=== PATIENT | female | born 1985 | race Caucasian/White ===

== ENCOUNTER 2017-12-14 06:52 | Day surgery (SDC) | payer BC ==
[~2017-12-14 06:52] MED LIST: Lactated Ringers 1,000 ML IV SCH; Lidocaine 1%/Sod Bicarbonate in NS 8.4% 1 ML Syringe IDERM PRN; Sodium Chloride 0.9% 10 ML Syringe FLUSH PRN
[2017-12-14] MEDS ORDERED: Propofol 200 MG/20 ML SDV ONE ×7 (07:20→09:25)
[2017-12-14] MEDS ORDERED: Midazolam 1 MG/ML 2 ML SDV ONE (07:21)
[2017-12-14] MEDS ORDERED: fentaNYL 100 MCG/2 ML SDV ONE ×2 (07:21→09:15)
--- NOTE | 2017-12-14 07:39 | PCM.PREANE ---
Preanesthetic Assessment - Anesthesia/Transfusion/Family Hx Anesthesia History: Prior Anesthesia Without Reaction Transfusion History: No Prior Transfusion(s) - Review of Systems General: No Symptoms Pulmonary: No Symptoms Cardiovascular: No Symptoms Gastrointestinal: No Symptoms Neurological: No Symptoms - Physical Assessment NPO Status Date: 12/13/17 NPO Status Time: 21:00 ASA Class: 2 Mental Status: Alert & Oriented x3 Airway Class: Mallampati = 1 Dentition: Reports: Normal Dentition ROM/Head Extension: Full Lungs: Clear to Auscultation Cardiovascular: Regular Rate - Lab Values: Laboratory Last Values Urine HCG, Qual Negative (NEGATIVE) 12/14/17 07:10 - Allergies Allergies/Adverse Reactions: Allergies Allergy/AdvReac Type Severity Reaction Status Date / Time No Known Allergies Allergy Verified 12/13/17 13:49 - Acknowledgements Anesthesia Type Planned: General Anesthesia, MAC Pt an Appropriate Candidate for the Planned Anesthesia: Yes Alternatives and Risks of Anesthesia Discussed w Pt/Guardian: Yes Pt/Guardian Understands and Agrees with Anesthesia Plan: Yes PreAnesthesia Questionnaire HEENT History: Reports: Impaired Vision, Other (See Below) Other HEENT History: strep throat, pharyngitis, wears glasses Respiratory History: Reports: Other (See Below) Other Respiratory History: pneumonia ANESTHESIA RESIDENT History: Reports: Endocrine/Metabolic History: Reports: Obesity/BMI 30+ - Past Surgical History Musculoskeletal Surgical History: Reports: Carpal Tunnel (bilateral) Dermatological Surgical History: Reports: None - SUBSTANCE USE Smoking Status *Q: Never Smoker Recreational Drug Use History: No - HOME MEDS Home Medications: Home Meds . [No Known Home Meds] 12/13/17 [History] - CURRENT (IN HOUSE) MEDS Current Meds: Current Medications Lactated Ringer's (Ringers, Lactated) 1,000 mls @ 125 mls/hr IV ASDIRECTED ROMAINE Stop: 12/14/17 23:00 Lidocaine/Sodium Bicarbonate (Buffered Lidocaine 1% In Ns 8.4%) 0.25 ml IDERM ONETIME PRN PRN Reason: Prior to IV Start Stop: 12/14/17 18:00 Sodium Chloride (Saline Flush) 10 ml FLUSH ASDIRECTED PRN PRN Reason: Keep Vein Open Stop: 12/14/17 18:00 Discontinued Medications Bupivacaine HCl (Marcaine 0.5%) Confirm Administered Dose 30 ml .ROUTE .STK-MED ONE Stop: 12/14/17 07:05 Fentanyl (Sublimaze) Confirm Administered Dose 200 mcg .ROUTE .STK-MED ONE Stop: 12/14/17 07:22 Lidocaine HCl (Xylocaine-Mpf 1%) Confirm Administered Dose 5 mls @ as directed .ROUTE .STK-MED ONE Stop: 12/14/17 07:21 Lidocaine HCl (Xylocaine-Mpf 1%) Confirm Administered Dose 30 ml .ROUTE .STK- MED ONE Stop: 12/14/17 07:05 Midazolam HCl (Versed 1 Mg/Ml) Confirm Administered Dose 2 mg .ROUTE .STK-MED ONE Stop: 12/14/17 07:22 Propofol (Diprivan 20 Ml) Confirm Administered Dose 200 mg .ROUTE .STK-MED ONE Stop: 12/14/17 07:21
[2017-12-14] MEDS: Bupivacaine 0.5% 30 ML SDV ONE ×2 (08:20→09:00)
[2017-12-14] MEDS: Lidocaine 1% 30 ML SDV ONE ×2 (08:20→09:00)
[2017-12-14] MEDS ORDERED: Lactated Ringers 1,000 ML ONE (08:35)
[2017-12-14] MEDS ORDERED: Bupivacaine 0.5% 10 ML SDV ONE (08:46)
[2017-12-14] MEDS ORDERED: Ondansetron 4 MG/2 ML SDV ONE (09:16)
--- NOTE | 2017-12-14 09:54 | PCM48HPAN ---
Post Anesthesia Note - EVALUATION WITHIN 48HRS OF ANESTHETIC Vital Signs in Normal Range: Yes Patient Participated in Evaluation: Yes Respiratory Function Stable: Yes Airway Patent: Yes Cardiovascular Function Stable: Yes Hydration Status Stable: Yes Pain Control Satisfactory: Yes Nausea and Vomiting Control Satisfactory: Yes Mental Status Recovered: Yes Pulse Rate: 119 SaO2: 97 Resp Rate: 16 Temperature: 97.8 F Blood Pressure: 118/88
--- NOTE | 2017-12-14 10:03 | PCM.OPNOTE ---
- General Post-Op/Procedure Note Date of Surgery/Procedure: 12/14/17 Operative Procedure(s): 1.) Gastrocnemius Intra-Muscular Recession, RIGHT lower extremity. 2.) Calcaneal Exostectomy, RIGHT heel. 3.) Partial Plantar Fasciectomy/Release, RIGHT heel. Pre Op Diagnosis: Painful/Symptomatic Chronic Plantar Fasciosis, RIGHT heel. Painful/Symptomatic Inferior Heel Spur, RIGHT. Painful/Symptomatic Gastrocnemius Equinus, RIGHT lower extremity. Anesthesia Technique: General LMA, Local Primary Surgeon: Jluis Hodges II Anesthesia Provider: Henry BRANDON in mLs: 20 Complications: None Condition: Good Free Text/Narrative:: Patient left the OR for recovery with her vital signs stable & vascular status grossly intact, RIGHT foot/ankle.
--- NOTE | 2017-12-14 10:30 | OR ---
DATE OF OPERATION: 12/14/2017 SURGEON: Jluis Hodges II, DPM LOCATION: [place], [place]. ANESTHESIA: LMA general anesthesia. ANESTHESIA PROVIDER: Henry Perdomo CRNA. HEMOSTASIS: Right pneumatic thigh tourniquet at 300 mmHg. PREOPERATIVE DIAGNOSIS: 1. Painful and symptomatic chronic plantar fasciosis, right heel. 2. Painful and symptomatic inferior heel spur, right. 3. Painful and symptomatic gastrocnemius equinus, right ankle. POSTOPERATIVE DIAGNOSIS: 1. Painful and symptomatic chronic plantar fasciosis, right heel. 2. Painful and symptomatic inferior heel spur, right. 3. Painful and symptomatic gastrocnemius equinus, right ankle. OPERATION PERFORMED: 1. Intramuscular gastroc recession, right lower extremity. 2. Calcaneal exostectomy, right heel. 3. Partial plantar fasciectomy and release, right heel. DESCRIPTION OF PROCEDURE: Upon arrival and admission to the hospital, the patient was examined and cleared for surgery by the assigned anesthesia provider. IV access was obtained in the preoperative area after which the patient was given prophylactic antibiotics consisting of 3 g of Ancef IV piggyback. The patient was then brought to the OR and assisted with transfer onto the operating room table in the supine position. The patient was given a combination of sedations before LMA general anesthesia. It was during this time of sedation, the patient received an additional 10 mL of 1:1 mixture of 1% lidocaine plain and 0.5% Marcaine plain in the form of a local infiltrative block at the operatory sites. The right lower extremity was wrapped with cotton Webril padding in preparation for nonsterile pneumatic thigh tourniquet, which was then draped with a sterile drape. The right lower extremity was then prepped and draped in the usual aseptic manner and the right lower extremity was then elevated and exsanguinated with the use of an Esmarch bandage before inflating the right pneumatic ankle tourniquet to 300 mmHg pressure. The Esmarch bandage was removed and the right lower extremity was placed back to the level of the operating room table. Attention was then directed to the inferomedial aspect of the right calf muscle where at approximately 3-5 cm, a 4 cm linear incision was created. This was a controlled depth skin incision taken down to the level of subcutaneous structures with care taken to retract the vital neurovascular structures within the area as well as to cauterize and ligate all superficial bleeders as deemed necessary. Continued soft tissue dissection was taken down to the subfascial plane and the fascia in this area was incised paralleling that of the skin. This allowed for a separation to be created between the gastrocnemius muscle and the soleus muscle. A long vaginal speculum was then placed through this area between these 2 muscle bellies and a long-handled belly blade was utilized to release the gastrocnemius from lateral to medial at this level. The wound was then copiously lavaged with sterile saline solution and closure of the subfascial plane was undertaken with 3-0 Vicryl while the skin was reapproximated with 4-0 Vicryl and 4-0 nylon in the form of a running interlocking simple suture knots. Attention was then directed to the inferomedial aspect of the right heel where an approximately 3.5 cm linear incision was created overlying the plantar fascial spur and at the insertion site of the plantar fascial ligament. This was a controlled depth skin incision taken down to the level of subcutaneous structures with care taken to retract the vital neurovascular structures within the area as well as to cauterize and/or ligate all superficial bleeders as deemed necessary. Continued soft tissue dissection was taken down to the level of the plantar fascia ligament and a plane was created both superior and inferior to the plantar fascial ligament. This allowed for 0.5 cm of the ligament to be resected and removed from the wound in toto and a rongeur was then utilized to resect the calcaneal exostosis within this area. It was then smoothed to a fine contour utilizing a rasp. After which time, the wound was then copiously lavaged with sterile saline solution. Intraoperative fluoroscopy and the lateral view demonstrated resection of the inferior heel spur. The skin was then reapproximated utilizing 4-0 nylon and 4-0 vertical mattress and horizontal mattress as well as simple interrupted mattress suture knots. Upon completion of the surgery, the right pneumatic thigh tourniquet was deflated and was noted digits 1 through 5 of the right lower extremity became pink indicating normal vascular perfusion had returned. The patient appeared to tolerate the procedure and anesthesia well and left the OR for recovery with vital signs being stable and vascular status intact digits 1 through 5 of the right lower extremity with no apparent complications. In recovery, the patient received written and oral postoperative instructions as well as postoperative pain medication. The patient will ambulate partial weightbearing with an immobilization boot about her right foot and ankle. Estimated blood loss for this procedure was approximately 20 mL. There were no apparent or obvious complications. ESTIMATED BLOOD LOSS: MMANTHONY /[id number]
[2017-12-14] MEDS ORDERED: Acetaminophen/HYDROcodone 325-5 MG Tab PO SCH (10:33)
--- NOTE | 2017-12-14 11:46 | CR ---
Right calcaneus: Four fluoroscopic spot views were obtained in lateral projection of the calcaneus. Study obtained utilizing C-arm device. Study shows surgery around a plantar spur. Fluoroscopy time is given as 10.1 seconds. Impression: 1. Operative study as noted above. Diagnostic code #2
== END 2017-12-14 11:20 | disposition home or self-care (01) ==
LOC: JD.SDS 06:52
PROVIDERS: ATTEND Podiatrist Foot & Ankle Surgery
DX: M72.2 Plantar fascial fibromatosis (principal); M21.6X1 Other acquired deformities of right foot; M77.31 Calcaneal spur, right foot; M77.32 Calcaneal spur, left foot; E66.9 Obesity, unspecified; Z68.42 Body mass index [BMI] 45.0-49.9, adult; Z79.899 Other long term (current) drug therapy
CPT/HCPCS: 27687; 28118; 76000; 81025; A9270; J2250; J2405; J2704; J3010; J3490; J7120; 01470